=== PATIENT | female | born 1985 | race Caucasian/White ===

== ENCOUNTER 2018-06-13 19:14 | Emergency (ER) | payer OTHER ==
[2018-06-13 19:22] VITALS: TEMP 98.2; O2SAT 100
[2018-06-13 19:57] LABS: HCG,QUALITATIVE URINE POSITIVE (NEGATIVE)
[2018-06-13 19:59] LABS: BASO # 0.1 K/uL (0.0-0.2); BASO % 0.7 % (0.0-2.0); EOS # 0.4 K/uL (0.0-0.7); HEMOGLOBIN 10.9 g/dL (11.0-16.0); LYMPH # 2.6 K/uL (1.0-4.3); LYMPH % 23.1 % (20.0-40.0); MEAN CELL VOLUME 76.6 fL (81.0-99.0); MEAN CORPUSCULAR HGB CONC 32.7 g/dL (33.0-37.0); MEAN PLATELET VOLUME 9.9 fL (7.2-11.7); MONO # 0.6 K/uL (0.0-0.8); MONO % 5.2 % (0.0-10.0); NEUT # 7.5 K/uL (1.8-7.0); RBC 4.38 Mil/uL (3.80-5.20); RED CELL DISTRIBUTION WIDTH 17.6 % (11.5-14.5); WHITE BLOOD COUNT 11.2 K/uL (4.8-10.8)
[2018-06-13 20:00] LABS: SQUAMOUS EPITHIAL < 1 /hpf (0-5); URINE BILIRUBIN NEGATIVE (NEGATIVE); URINE BLOOD 2+ (NEGATIVE); URINE CLARITY Clear (Clear); URINE COLOR Straw (YELLOW); URINE GLUCOSE (UA) NORMAL (Normal); URINE LEUKOCYTE ESTERASE NEG Leu/uL (Negative); URINE PROTEIN NEGATIVE (NEGATIVE); URINE UROBILINOGEN NORMAL mg/dL (0.2-1.0)
[2018-06-13 20:10] LABS: ALB/GLOB RATIO 1.3 (1.0-2.1); ALBUMIN 4.5 g/dL (3.5-5.0); AST/SGOT 18 U/L (14-36); BLOOD UREA NITROGEN 6 mg/dL (7-17); CALCIUM 10.3 mg/dl (8.6-10.4); GFR NON-AFRICAN AMERICAN > 60
[2018-06-13 20:13] LABS: ALT/SGPT < 6 U/L (9-52)
--- NOTE | 2018-06-13 23:23 | C.PDOC ---
History Of Present Illness 32 y/o female presents to ED for vaginal bleeding and passing large clots. Patient is 12 weeks , . Had a normal US at 10 weeks. Patient has no history of STDs. Time Seen by Provider: 06/13/18 19:34 Chief Complaint (Nursing): Abdominal Pain History Per: Patient History/Exam Limitations: no limitations Onset/Duration Of Symptoms: Hrs Current Symptoms Are (Timing): Still Present Past Medical History Reviewed: Historical Data, Nursing Documentation, Vital Signs Vital Signs: Last Vital Signs Temp 98.2 F 06/13/18 19:18 Pulse 110 H 06/13/18 19:18 Resp 16 06/13/18 19:18 BP 147/80 06/13/18 19:18 Pulse Ox 100 06/13/18 19:18 - Medical History PMH: HTN Family History: States: No Known Family Hx - Social History Hx Alcohol Use: No Hx Substance Use: No - Immunization History Hx Tetanus Toxoid Vaccination: No Hx Influenza Vaccination: No Hx Pneumococcal Vaccination: No Review Of Systems Except As Marked, All Systems Reviewed And Found Negative. Constitutional: Negative for: Fever Genitourinary: Positive for: Vaginal Bleeding. Negative for: Dysuria, Hematuria Neurological: Negative for: Dizziness Physical Exam - Physical Exam Appears: Non-toxic, No Acute Distress, Other (Tearful) Skin: Warm, Dry Head: Atraumatic Eye(s): bilateral: Normal Inspection Oral Mucosa: Moist Neck: Supple Cardiovascular: Rhythm Regular, No Murmur Respiratory: Normal Breath Sounds, No Rales, No Rhonchi, No Wheezing Gastrointestinal/Abdominal: Soft, No Tenderness, No Guarding, No Rebound Pelvic: Other (Deferred) Extremity: Bilateral: Atraumatic Neurological/Psych: Oriented x3, Normal Speech ED Course And Treatment - Laboratory Results Result Diagrams: 06/13/18 19:53 06/13/18 19:53 Lab Results: Total Bilirubin < 0.1 mg/dL (0.2-1.3) L 06/13/18 19:53 AST 18 U/L (14-36) 06/13/18 19:53 ALT < 6 U/L (9-52) L 06/13/18 19:53 Alkaline Phosphatase 53 U/L (38-126) 06/13/18 19:53 Total Protein 8.1 g/dL (6.3-8.3) 06/13/18 19:53 Albumin 4.5 g/dL (3.5-5.0) 06/13/18 19:53 Globulin 3.6 gm/dL (2.2-3.9) 06/13/18 19:53 Albumin/Globulin Ratio 1.3 (1.0-2.1) 06/13/18 19:53 Urine Color Straw (YELLOW) 06/13/18 19:53 Urine Clarity Clear (Clear) 06/13/18 19:53 Urine pH 6.0 (5.0-8.0) 06/13/18 19:53 Ur Specific [place] 1.008 (1.003-1.030) 06/13/18 19:53 Urine Protein Negative mg/dL (NEGATIVE) 06/13/18 19:53 Urine Glucose (UA) Normal mg/dL (Normal) 06/13/18 19:53 Urine Ketones Negative mg/dL (NEGATIVE) 06/13/18 19:53 Urine Blood 2+ (NEGATIVE) H 06/13/18 19:53 Urine Nitrate Negative (NEGATIVE) 06/13/18 19:53 Urine Bilirubin Negative (NEGATIVE) 06/13/18 19:53 Urine Urobilinogen Normal mg/dL (0.2-1.0) 06/13/18 19:53 Ur Leukocyte Esterase Neg Karen/uL (Negative) 06/13/18 19:53 Urine WBC (Auto) 1 /hpf (0-5) 06/13/18 19:53 Urine RBC (Auto) 30 /hpf (0-3) H 06/13/18 19:53 Ur Squamous Epith Cells < 1 /hpf (0-5) 06/13/18 19:53 Urine HCG, Qual Positive (NEGATIVE) 06/13/18 19:53 Beta HCG, Quant 16582.00 mIU/ML 06/13/18 19:53 Urine HCG, Qual Positive (NEGATIVE) 06/13/18 19:53 Lab Interpretation: Normal (QHCG 71,697 H, B+) Urine POC: Positive O2 Sat by Pulse Oximetry: 100 (RA) Pulse Ox Interpretation: Normal - CT Scan/US US Obstetrical Other Rad Studies (CT/US): Read By Radiologist, Radiology Report Reviewed CT/US Interpretation: IMPRESSION: 1. Uterus measures 16.6 x 8.2 x 9.6 cm. 2. Cervix measures 3.6 cm and appears closed. 3. Gestational sac present and demonstrates a mean sac diameter of 5.7 cm compatible with an estimated ultrasound age of 11.5 weeks. 4. The head no yolk sac is seen. 5. A pole is present with a crown rump length of 6.1 cm compatible with estimated ultrasound age of 12.4 weeks. 6. heart motion observed at 164 beats per minute. 7. The right ovary and left ovary are not visualized. 8. The placenta appears to be anterior and fundal. 9. Focal thickened hypoechoic region is seen at the anterior fundal portion of the uterus and measures 3.9 x 2.3 centimeters. Unclear if this represents subchorionic hemorrhage uterine contraction or other lesion. Please correlate clinically. If indicated, followup can be obtained to further evaluate. . Electronically signed on Jun 13, 2018 11:57:20 PM EDT by: Jarrell Payan M.D., Certified by [facility], Diagnostic Radiology Reevaluation Time: 00:13 Reassessment Condition: Improved Medical Decision Making Medical Decision Making: Plan: --Labs --UA -- US 0015: threatened AB IUP again demonstrated (as 10 wk US) prob large sub chorionic hematoma B+, no RhoGam required Disposition Doctor Will See Patient In The: Office Counseled Patient/Family Regarding: Studies Performed, Diagnosis - Disposition Disposition: HOME/ ROUTINE Disposition Time: 00:14 (\) Condition: GOOD Forms: [facility] ([place]ijani) - Clinical Impression Clinical Impression: Threatened - Scribe Statement The provider has reviewed the documentation as recorded by the Michelle Wilhelm Provider Attestation: All medical record entries made by the Michelle were at my direction and personally dictated by me. I have reviewed the chart and agree that the record accurately reflects my personal performance of the history, physical exam, medical decision making, and the department course for this patient. I have also personally directed, reviewed, and agree with the discharge instructions and disposition.
[2018-06-14 00:22] VITALS: BP 111/80; PULSE 76; RESP 18
--- NOTE | 2018-06-14 08:08 | US ---
Date of service: 06/13/2018 PROCEDURE: OB Pelvic Ultrasound HISTORY: 12 weeks, heavy bleeding, ? AB LMP: COMPARISON: None available. FINDINGS: UTERUS: Gestational sac: Single live intrauterine gestation. Gestational sac diameter measures 5.67 cm corresponding to 11 weeks and 5 days of gestational age. CRL measures 6.11 cm corresponding to 12 weeks and 4 days of gestational age Heart rate: 164 bpm. age (Ultrasound estimated): 12 weeks and 1 day Ria-gestational hemorrhage: There is a 2.4 x 0.9 x 1.3 cm subchorionic hemorrhage. There is an apparent 3.9 x 2.3 x 1.9 cm curvilinear hypoechoic area anterior to the placental implantation with mild peripheral increased vascularity. Date of delivery (Ultrasound estimated) : 12/25/2018 Uterus measures 16.6 x 8.2 x 9.6 cm. Normal in size and appearance. CERVIX: Measures 3.6 cm. Long and closed. No cervical abnormality seen. RIGHT OVARY: Not visualized. LEFT OVARY: Not visualized. FREE FLUID: None. OTHER FINDINGS: None. IMPRESSION: 1. single live intrauterine gestation with mean gestational age of 12 weeks and 1 day. The estimated date of delivery by ultrasound is 12/25/2018. The ultrasound dates correspond with the clinical dates. 2. 2.4 x 0.9 x 1.3 cm subchorionic hemorrhage. 3. Apparent 3.9 x 2.3 x 1.9 cm curvilinear area anterior to the placenta which may represent hemorrhage versus focal myometrial contraction. Clinical follow-up is advised.
== END 2018-06-14 00:35 | disposition home or self-care (01) ==
LOC: C.ER 19:14
DX: O20.0 Threatened abortion (principal); Z3A.12 12 weeks gestation of pregnancy

== ENCOUNTER 2018-06-16 10:48 | Outpatient (CLI) | payer OTHER | END 2018-06-16 10:49 | disposition home or self-care (01) | LOC: C.LAB 10:48 ==

== ENCOUNTER 2018-07-04 18:54 | Emergency (ER) | payer OTHER ==
--- NOTE | 2018-07-04 19:23 | C.PDOC ---
History Of Present Illness 32 year old female () at 15 weeks presents to the emergency department with complaints of vaginal bleeding and mild suprapubic abdominal pressure since this morning. Patient states using small panty liner with spotting and with no clots noted. Patient reports improvement from previous bleeding a few weeks prior. Patient denies trauma, fall, urinary complaints, vaginal discharge, rash, dark / bloody stool, constipation, diarrhea, fever, chills or night sweats. OBGYN: Dr. Desir Time Seen by Provider: 07/04/18 19:05 Chief Complaint (Nursing): Female Genitourinary History Per: Patient History/Exam Limitations: no limitations Onset/Duration Of Symptoms: Hrs Current Symptoms Are (Timing): Still Present Quality Of Discomfort: Pressure Associated Symptoms: denies: Fever, Chills, Nausea, Vomiting, Diarrhea, Constipation, Urinary Symptoms : 1 Para: 0 Past Medical History Reviewed: Historical Data, Nursing Documentation, Vital Signs Vital Signs: Last Vital Signs Temp 97.5 F L 07/04/18 18:57 Pulse 87 07/04/18 18:57 Resp 20 07/04/18 18:57 BP 126/88 07/04/18 18:57 Pulse Ox 100 07/04/18 18:57 Primary Care Provider: Oma Desir - Medical History PMH: HTN Surgical History: No Surg Hx Family History: States: No Known Family Hx - Social History Hx Alcohol Use: No Hx Substance Use: No - Immunization History Hx Tetanus Toxoid Vaccination: No Hx Influenza Vaccination: No Hx Pneumococcal Vaccination: No Review Of Systems Constitutional: Negative for: Fever, Chills, Weakness, Weight loss Eyes: Negative for: Pain, Vision Change, Eyelid Inflammation ENT: Negative for: Ear Pain, Ear Discharge, Nose Congestion, Mouth Pain, Throat Pain Cardiovascular: Negative for: Chest Pain, Edema Respiratory: Negative for: Cough, Shortness of Breath, SOB with Excertion, Pleuritic Pain, Wheezing Gastrointestinal: Positive for: Abdominal Pain. Negative for: Nausea, Vomiting, Diarrhea, Constipation, Melena Genitourinary: Positive for: Vaginal Bleeding. Negative for: Dysuria, Frequency, Incontinence, Hematuria, Vaginal Discharge, Pelvic Pain, Rash, Other Musculoskeletal: Negative for: Neck Pain, Shoulder Pain, Back Pain, Hand Pain Skin: Negative for: Rash, Lesions Neurological: Negative for: Weakness, Numbness, Headache Psych: Negative for: Anxiety, Depression, Psychosis Physical Exam - Physical Exam Appears: Well, Non-toxic, No Acute Distress Skin: Normal Color, Warm, Dry Head: Atraumatic, Normacephalic Eye(s): bilateral: Normal Inspection, PERRL, EOMI Oral Mucosa: Moist Neck: Normal, Supple, Other (no meningeal signs) Lymphatic: Normal Exam, No Adenopathy Chest: Symmetrical, No Tenderness Cardiovascular: Rhythm Regular, No Murmur Respiratory: Normal Breath Sounds, No Rales, No Rhonchi, No Wheezing Gastrointestinal/Abdominal: Normal Exam, Soft, No Tenderness, No Organomegaly, No Mass, No Distention, No Guarding, No Rebound, No Hernia Back: Normal Inspection, No CVA Tenderness, No Vertebral Tenderness, No Decreased ROM Extremity: Normal ROM, No Tenderness, No Pedal Edema, No Deformity, No Swelling Pulses: Left Dorsalis Pedis: Normal, Right Dorsalis Pedis: Normal Neurological/Psych: Oriented x3, Normal Speech, Normal Cognition, Normal Motor Gait: Steady Extremity: Right: No Drift, Left: No Drift ED Course And Treatment - Laboratory Results Result Diagrams: 07/04/18 19:30 07/04/18 19:30 O2 Sat by Pulse Oximetry: 100 (RA) Pulse Ox Interpretation: Normal Medical Decision Making Medical Decision Makin32 year old female () presents to the emergency department with complaints of vaginal bleeding and mild suprapubic abdominal pressure since this morning. On exam, no abdominal pain and pt notes that she does not have any current abdominal pain. No fall or trauma. No dark or bloody stool. No abd tenderness. No rash or fever / chills or night sweats. Pt was seen here previously with more severe vaginal bleeding and hat outpt followup. Pt could not get an appt with Dr. Ari Desir today so they came here for evaluation. Impression: Threatened AB Plan: Blood Bank Type and Screen Chemistry Bloodwork Urinalysis US Transvag pending imaging, labs 2006 labs largely unremarkable: pending Bhcg UA unremarkable, blood in urine likely 2/2 vaginal bleeding pending US Blood type B+: no indication for rhogam 2211 TVUS: cervix closed, FHR 143 pt in NAD, abd non-ttp endorsed importance of pelvic rest (IE- no sex) to pt and she is agreeable to plan clear for d/c home with return indications and f/u pt agreeable to plan. Disposition - Disposition Referrals: Oma Desir MD [Staff Provider] - [facility] [facility] [Outside] [facility] [Outside] [facility] [Outside] Disposition Time: 22:12 Condition: STABLE Additional Instructions: FOLLOWUP With DR. SAVI DUFFY on an outpatient basis regarding your and bleeding. RAÚL ZALDIVAR, thank you for letting us take care of you today. Your provider was Andres León and you were treated for 16 WEEKS , VAGINAL BLEEDING. The emergency medical care you received today was directed at your acute symptoms. If you were prescribed any medication, please fill it and take as directed. It may take several days for your symptoms to resolve. Return to the Emergency Department if your symptoms worsen, do not improve, or if you have any other problems. Please contact your doctor or call one of the physicians/clinics you have been referred to that are listed on the Patient Visit Information form that is included in your discharge packet. Bring any paperwork you were given at discharge with you along with any medications you are taking to your follow up visit. Our treatment cannot replace ongoing medical care by a primary care provider outside of the emergency department. Thank you for allowing the [facility] team to be part of your care today. If you had an X-Ray or CT scan: A Radiologist will review the ED reading if any change in treatment is needed we will contact you. If you had a blood, urine, or wound culture: It will take several days for the results, if any change in treatment is needed we will contact you. If you had an STI test: It will take 48 hours for the results. Please call after 1 week if you have not heard back. Instructions: Threatened Miscarriage (DC), Bleeding With (DC) Forms: [employer] ([place]) - Clinical Impression Clinical Impression: Threatened - Scribe Statement The provider has reviewed the documentation as recorded by the Scribe (Pawan Fitzgerald) Provider Attestation: All medical record entries made by the Scribe were at my direction and personally dictated by me. I have reviewed the chart and agree that the record accurately reflects my personal performance of the history, physical exam, medical decision making, and the department course for this patient. I have also personally directed, reviewed, and agree with the discharge instructions and disposition.
[2018-07-04] MEDS ORDERED: Sodium Chloride 0.9% 1,000 ML ONE (19:24)
[2018-07-04 19:35] LABS: BASO # 0.1 K/uL (0.0-0.2); BASO % 0.8 % (0.0-2.0); EOS # 0.5 K/uL (0.0-0.7); EOS % 3.9 % (0.0-4.0); HEMOGLOBIN 9.8 g/dL (11.0-16.0); LYMPH # 2.2 K/uL (1.0-4.3); LYMPH % 18.7 % (20.0-40.0); MEAN CELL VOLUME 77.4 fL (81.0-99.0); MEAN CORPUSCULAR HGB CONC 32.3 g/dL (33.0-37.0); MEAN PLATELET VOLUME 10.8 fL (7.2-11.7); MONO # 0.8 K/uL (0.0-0.8); MONO % 6.6 % (0.0-10.0); NEUT # 8.2 K/uL (1.8-7.0); NRBC % 0.1 % (0.0-2.0); RBC 3.92 Mil/uL (3.80-5.20); RED CELL DISTRIBUTION WIDTH 16.9 % (11.5-14.5); WHITE BLOOD COUNT 11.7 K/uL (4.8-10.8)
[2018-07-04 19:41] LABS: INR 1.1; PARTIAL THROMBOPLASTIN TIME 30.4 SECONDS (21-34); PROTHROMBIN TIME 11.7 SECONDS (9.7-12.2)
[2018-07-04 19:54] LABS: SQUAMOUS EPITHIAL < 1 /hpf (0-5); URINE BACTERIA RARE (<OCC); URINE BILIRUBIN NEGATIVE (NEGATIVE); URINE BLOOD 3+ (NEGATIVE); URINE CLARITY Clear (Clear); URINE COLOR Straw (YELLOW); URINE GLUCOSE (UA) NORMAL (Normal); URINE LEUKOCYTE ESTERASE NEG Leu/uL (Negative); URINE PROTEIN NEGATIVE (NEGATIVE); URINE UROBILINOGEN NORMAL mg/dL (0.2-1.0)
[2018-07-04 20:03] LABS: ALB/GLOB RATIO 1.1 (1.0-2.1); ALBUMIN 4.1 g/dL (3.5-5.0); ALT/SGPT 18 U/L (9-52); AST/SGOT 15 U/L (14-36); BLOOD UREA NITROGEN 5 mg/dL (7-17); CALCIUM 9.5 mg/dl (8.6-10.4); GFR NON-AFRICAN AMERICAN > 60
[2018-07-04 23:08] VITALS: BP 121/77; PULSE 87; RESP 18; TEMP 98; O2SAT 99
--- NOTE | 2018-07-06 09:38 | US ---
Date of service: 07/04/2018 PROCEDURE: Obstetrical ultrasound examination HISTORY: vaginal bleeding COMPARISON: Not available TECHNIQUE: Transabdominal FINDINGS: There is a single live intrauterine gestation in breech presentation. The heart rate is 143 beats per minute. A grossly normal quantity of amniotic fluid is visualized. A normal posterior placenta is identified. There is no evidence of placenta previa. The cervix is long and closed. It measures 5.9 cm. biometry yields a gestational age of 16 weeks 1 day. The FERNANDO by ultrasound is 12/18/2018. There is fluid distending the stomach and urinary bladder. A three-vessel umbilical cord is identified. The anterior abdominal wall is intact. Two normal kidneys are seen without evidence of hydronephrosis. Review of and Edmar Mcguire was limited at the time of this examination. IMPRESSION: Single live intrauterine gestation of approximately 16 weeks 1 day gestational age. Breech presentation. Cervix long and closed. Posterior placenta. No previa. No gross anatomic abnormality. Anatomic evaluation is limited at this time. The preliminary findings for this examination were reported by [facility] at 10:03 p.m. on 07/04/2018. There is concurrence of this report with the preliminary findings.
== END 2018-07-04 23:08 | disposition home or self-care (01) ==
LOC: C.ER 18:54
DX: O20.0 Threatened abortion (principal); Z3A.16 16 weeks gestation of pregnancy

== ENCOUNTER 2018-07-14 05:07 | Emergency (ER) | payer OTHER ==
--- NOTE | 2018-07-14 05:15 | C.PDOC ---
History Of Present Illness Patient presents complaining of vaginal bleeding( 3 episodes). Patient is , reports similar event on 07/04/18, [place] [address] and US showed 16 week with no acute pathology. Denies fever, nausea, or vomiting. Time Seen by Provider: 07/14/18 05:14 History Per: Patient History/Exam Limitations: no limitations Onset/Duration Of Symptoms: Hrs Current Symptoms Are (Timing): Still Present Severity: Moderate Pain Scale Rating Of: 4 Quality Of Discomfort: Cramping Associated Symptoms: denies: Fever, Nausea, Vomiting Alleviating Factors: None Recent travel outside of the [place]: No Abnormal Vaginal Bleeding: Yes Past Medical History Reviewed: Historical Data, Nursing Documentation, Vital Signs - Medical History PMH: HTN Family History: States: Unknown Family Hx - Social History Hx Alcohol Use: No Hx Substance Use: No - Immunization History Hx Tetanus Toxoid Vaccination: No Hx Influenza Vaccination: No Hx Pneumococcal Vaccination: No Review Of Systems Constitutional: Negative for: Fever, Chills Cardiovascular: Negative for: Chest Pain, Palpitations Respiratory: Negative for: Cough, Shortness of Breath Gastrointestinal: Negative for: Nausea, Vomiting Genitourinary: Positive for: Vaginal Bleeding Neurological: Negative for: Weakness, Numbness Physical Exam - Physical Exam Appears: Non-toxic Skin: Warm, Dry Head: Normacephalic Oral Mucosa: Moist Chest: Symmetrical, No Tenderness Cardiovascular: Rhythm Regular Respiratory: No Rales, No Rhonchi, No Wheezing Gastrointestinal/Abdominal: Soft, Tenderness (Mild suprapubic), No Guarding, No Rebound Pelvic: Vaginal Bleeding Neurological/Psych: Oriented x3 ED Course And Treatment - Laboratory Results Result Diagrams: 07/14/18 05:48 Progress Note: Blood work and UA ordered. IV fluids administered. Disposition Counseled Patient/Family Regarding: Studies Performed, Diagnosis - Disposition Disposition Time: 05:15 Condition: FAIR - Clinical Impression Clinical Impression: Threatened - Scribe Statement The provider has reviewed the documentation as recorded by the Scribcherie Coles All medical record entries made by the Leolaibe were at my direction and personally dictated by me. I have reviewed the chart and agree that the record accurately reflects my personal performance of the history, physical exam, medical decision making, and the department course for this patient. I have also personally directed, reviewed, and agree with the discharge instructions and disposition. Physician Patient Turnover Patient Signed Over To: Nicole Bobo Handoff Comments: pending labs, US , re-eval and disposition
[2018-07-14 05:16] VITALS: BMI 28.6
[2018-07-14] MEDS ORDERED: Sodium Chloride 0.9% 1,000 ML IV ONE (05:16)
[2018-07-14 05:51] LABS: BASO # 0.1 K/uL (0.0-0.2); BASO % 0.7 % (0.0-2.0); EOS # 0.3 K/uL (0.0-0.7); EOS % 1.9 % (0.0-4.0); LYMPH # 1.8 K/uL (1.0-4.3); LYMPH % 12.8 % (20.0-40.0); MEAN CELL VOLUME 77.3 fL (81.0-99.0); MEAN CORPUSCULAR HEMOGLOBIN 25.2 pg (27.0-31.0); MEAN CORPUSCULAR HGB CONC 32.6 g/dL (33.0-37.0); MEAN PLATELET VOLUME 9.9 fL (7.2-11.7); MONO # 0.6 K/uL (0.0-0.8); MONO % 4.4 % (0.0-10.0); NEUT % 80.2 % (50.0-75.0); RBC 3.97 Mil/uL (3.80-5.20); RED CELL DISTRIBUTION WIDTH 16.8 % (11.5-14.5); WHITE BLOOD COUNT 13.7 K/uL (4.8-10.8)
[2018-07-14 05:55] LABS: SQUAMOUS EPITHIAL 1 /hpf (0-5); URINE BACTERIA RARE (<OCC); URINE BILIRUBIN NEGATIVE (NEGATIVE); URINE CLARITY Clear (Clear); URINE COLOR Colorless (YELLOW); URINE GLUCOSE (UA) NORMAL (Normal); URINE LEUKOCYTE ESTERASE NEG Leu/uL (Negative); URINE PROTEIN NEGATIVE (NEGATIVE); URINE UROBILINOGEN NORMAL mg/dL (0.2-1.0)
[2018-07-14 06:02] LABS: URINE BLOOD NEGATIVE (NEGATIVE)
[2018-07-14 06:52] LABS: ALB/GLOB RATIO 1.1 (1.0-2.1); ALBUMIN 3.9 g/dL (3.5-5.0); ALT/SGPT 15 U/L (9-52); AST/SGOT 15 U/L (14-36); BLOOD UREA NITROGEN 4 mg/dL (7-17); CALCIUM 9.3 mg/dl (8.6-10.4); GFR NON-AFRICAN AMERICAN > 60
--- NOTE | 2018-07-14 11:05 | US ---
Indication: 17 18 weeks, vag bleed Comparison: Limited OB ultrasound performed 07/04/18 Technique: Real-time ultrasound was performed through the pelvis. Findings: There is a single living fetus in breech presentation. Posterior placenta. The placenta is not previa. There are no adnexal masses or cysts evident. Cervix length measures approximately 3.5 cm. Measurements and calculations: Fetus has a composite sonographic age of 17 weeks 0 days. This calculation is based on the biparietal diameter, head circumference, abdominal circumference, and femur length. Nonspecific echogenic focus of unclear origin or etiology, possibly artifactual seen on static images (for example image 30 and 48). Evidence of small subchorionic hemorrhage which measures approximately 4.5 x 0.9 x 4.0 cm. Estimated heart rate 137.2 beats per min. Impression: Single living fetus with a composite sonographic age of 17 weeks 0 days. Evidence of small subchorionic hemorrhage which measures approximately 4.5 x 0.9 x 4.0 cm. Estimated heart rate 137.2 beats per min. Nonspecific echogenic focus of unclear origin or etiology, possibly artifactual. The study was performed for the emergent evaluation of vaginal bleeding, and the whole anatomic survey of the fetus was not performed and included anatomy was suboptimally visualized. Whole anatomic survey of the fetus should be performed on an outpatient elective basis for further evaluation.
[2018-07-14 12:03] VITALS: BP 111/72; PULSE 97; RESP 20; TEMP 98.1; O2SAT 98
== END 2018-07-14 12:02 | disposition home or self-care (01) ==
LOC: C.ER 05:07
DX: O20.0 Threatened abortion (principal); Z3A.17 17 weeks gestation of pregnancy
CPT/HCPCS: 76815; 80053; 81001; 84702; 85025; 86850; 86900; 99284; J7030